=== PATIENT | female | born 1975 | race Caucasian/White ===

== ENCOUNTER 2021-01-16 18:08 | Inpatient (IN) | payer BC ==
[2021-01-16 19:11] LABS: Hemoglobin 14.7 g/dL (12.0-15.5); Mean Corpuscular HGB CONC 34.5 g/dL (32.0-36.0); Mean Corpuscular Hemoglobin 30.5 pg (27.0-33.0); Mean Corpuscular Volume 88.4 fl (81.6-98.3); Mean Platelet Volume 8.7 fl (7.4-10.4); Platelet Count 307 10x3/uL (150-450); RBC Distribution Width 13.3 % (11.5-14.5); Red Blood Cell (RBC) Count 4.82 10x6/uL (3.90-5.03); White Blood Cell (WBC) Count 23.1 10x3/uL (3.5-10.5)
[2021-01-16 19:21] LABS: ALT (SGPT) 25 U/L (8-55); AST (SGOT) 20 U/L (5-34); Albumin 4.1 g/dL (3.5-5.0); Alkaline Phosphatase 52 U/L (40-110); Anion Gap 18 mmol/L (10-20); BUN (Urea Nitrogen) 25 mg/dL (7.0-18.7); Bilirubin, Total 1.6 mg/dL (0.2-1.2); CK (CPK) 58 U/L (29-168); Calc. Creatinine Clearance 0 mL/min (70-130); Calcium 9.6 mg/dL (7.8-10.44); Carbon Dioxide 20 mmol/L (22-29); Chloride 102 mmol/L (98-107); Globulin 3.4 g/dL (2.4-3.5); Glucose 128 mg/dL (70-105); Lipase 12 U/L (8-78); Protein, Total 7.5 g/dL (6.0-8.3); Sodium 137 mmol/L (136-145)
[2021-01-16 19:42] LABS: Band 46 % (5-11); Lymphocytes 6 % (21-51); Metamyelocyte 3 % (0-0); Monocytes 12 % (0-10); Neutrophil 32 % (42-75); Reactive Lymphocytes 1 % (0-10)
[2021-01-16 19:45] LABS: Platelet Morphology Comment Appears Adequate; RBC Morphology Normal
[2021-01-16 19:50] LABS: Potassium 2.9 mmol/L (3.5-5.1)
[2021-01-16 20:03] LABS: Bilirubin Neg (Negative); Blood, Urine 50 (Negative); Clarity Clear (Clear); Glucose, Urine (Dipstick) Normal (Negative); Ketone, Urine 15 mg/dL (Negative); Leukocyte Negative (Negative); Nitrite Negative (Negative); Protein, Urine (Dipstick) 30 mg/dl (Neg-Trace); Specific Gravity, Urine 1.005 (1.002-1.036); Urobilinogen Normal mg/dL (Less than 2)
[2021-01-16 20:13] LABS: Bacteria/HPF Rare-Few HPF (None Seen); RBC/HPF 0-3 HPF (0-3); Squamous Epithelial 0-3 HPF (0-3); Transitional Epithelial 0-3 HPF (None Seen); WBC/HPF 0-3 HPF (0-3)
[2021-01-16] MEDS ORDERED: Potassium Chloride 20 MEQ TAB ONE (20:15)
[2021-01-16] MEDS ORDERED: metroNIDAZOLE 500 MG/100 ML BAG ONE (20:16)
[2021-01-16] MEDS ORDERED: HYDROcodone/Acetaminophen 5/325 mg Tablet PO PRN (21:57)
[2021-01-16] MEDS ORDERED: Ondansetron ODT 4 MG TAB PO PRN (21:57)
[2021-01-16] MEDS ORDERED: Acetaminophen 325 MG TAB PO PRN (21:57)
[2021-01-16] MEDS ORDERED: Ondansetron PF 4 MG/2 ML Vial IVP PRN (21:57)
[2021-01-16] MEDS ORDERED: Ondansetron PF 4 MG/2 ML Vial ONE (23:25)
[2021-01-17 03:49] VITALS: BMI 29.2
[2021-01-17] MEDS ORDERED: Potassium Chloride 20 MEQ TAB PO SCH (04:00)
[2021-01-17 04:19] LABS: Mean Corpuscular HGB CONC 34.8 g/dL (32.0-36.0); Mean Corpuscular Hemoglobin 30.8 pg (27.0-33.0); Mean Corpuscular Volume 88.7 fl (81.6-98.3); Mean Platelet Volume 8.8 fl (7.4-10.4); Platelet Count 252 10x3/uL (150-450); RBC Distribution Width 13.8 % (11.5-14.5); Red Blood Cell (RBC) Count 3.89 10x6/uL (3.90-5.03); White Blood Cell (WBC) Count 13.5 10x3/uL (3.5-10.5)
[2021-01-17] MEDS: NS 0.9% w/ 20 MEQ KCL 1,000 ML/1,000 ML BAG IV SCH ×3 (04:23→21:50)
[2021-01-17 04:26] LABS: ALT (SGPT) 19 U/L (8-55); AST (SGOT) 13 U/L (5-34); Albumin 3.2 g/dL (3.5-5.0); Alkaline Phosphatase 40 U/L (40-110); Anion Gap 14 mmol/L (10-20); BUN (Urea Nitrogen) 15 mg/dL (7.0-18.7); Bilirubin, Total 0.9 mg/dL (0.2-1.2); Calc. Creatinine Clearance 135 mL/min (70-130); Calcium 8.4 mg/dL (7.8-10.44); Carbon Dioxide 21 mmol/L (22-29); Chloride 109 mmol/L (98-107); Globulin 2.5 g/dL (2.4-3.5); Glucose 103 mg/dL (70-105); Magnesium 1.4 mg/dL (1.6-2.6); Potassium 3.1 mmol/L (3.5-5.1); Protein, Total 5.7 g/dL (6.0-8.3); Sodium 141 mmol/L (136-145)
[2021-01-17] MEDS: metroNIDAZOLE 500 MG in Premix Bag 1 BAG IVPB SCH ×3 (05:15→21:51)
[2021-01-17] MEDS: Vancomycin HCl 25 MG/ML Oral PO SCH ×5 (05:17→14:52)
[2021-01-17] MEDS ORDERED: Potassium Chloride 20 MEQ in Premix Bag 1 BAG IVPB SCH (05:30)
[2021-01-17] MEDS ORDERED: Magnesium 2 GM/50 ML 2 GM in Premix Bag 1 BAG IVPB SCH (05:30)
[2021-01-17 07:32] LABS: Band 37 % (5-11); Lymphocytes 4 % (21-51); Monocytes 7 % (0-10); Neutrophil 47 % (42-75); Reactive Lymphocytes 5 % (0-10)
[2021-01-17 07:34] LABS: Dohle Bodies SLIGHT; Platelet Morphology Comment Appears Adequate; Small Platelets MODERATE; Vacuoles MODERATE
[2021-01-17 07:35] LABS: MDiff Complete? YES; Manual Diff?? YES
[2021-01-17 07:36] LABS: RBC Morphology Normal
[2021-01-17] MEDS: Enoxaparin Sodium 40 MG/0.4 ML SYRINGE SC SCH (08:56)
[2021-01-17 14:33] LABS: Potassium 3.1 mmol/L (3.5-5.1)
[2021-01-17] MEDS: VANCOMYCIN HCL 125 MG PO SCH (17:14)
[2021-01-17] MEDS: [UNRECOGNIZED DRUG - OTHER] PO SCH (17:14)
[2021-01-17] MEDS: Potassium Chloride 20 MEQ TAB PO SCH (21:49)
[2021-01-18] MEDS: Potassium Chloride 20 MEQ TAB PO SCH ×4 (00:42→16:16)
[2021-01-18] MEDS: VANCOMYCIN HCL 125 MG PO SCH ×3 (00:42→14:06)
[2021-01-18] MEDS: [UNRECOGNIZED DRUG - OTHER] PO SCH ×3 (00:42→14:06)
[2021-01-18] MEDS ORDERED: Potassium Chloride 20 MEQ TAB PO SCH ×2 (02:30→09:00)
[2021-01-18 04:49] LABS: Anion Gap 11 mmol/L (10-20); BUN (Urea Nitrogen) 6 mg/dL (7.0-18.7); Calc. Creatinine Clearance 138 mL/min (70-130); Calcium 8.3 mg/dL (7.8-10.44); Carbon Dioxide 22 mmol/L (22-29); Chloride 111 mmol/L (98-107); Glucose 102 mg/dL (70-105); Magnesium 1.8 mg/dL (1.6-2.6); Potassium 3.3 mmol/L (3.5-5.1); Sodium 141 mmol/L (136-145)
[2021-01-18 04:55] LABS: #Eosinphils 0.2 10x3/uL (0.0-0.5); #Monocytes 0.9 10x3/uL (0.0-1.1); #Neutrophils 6.5 10x3/uL (1.5-8.4); %Basophils 0.3 % (0.0-2.0); %Eosinophils 2.5 % (0.0-6.0); %Lymphocytes 16.7 % (18.0-47.0); %Monocytes 9.3 % (0.0-10.0); %Neutrophils 70.7 % (40.0-75.0); Hemoglobin 11.5 g/dL (12.0-15.5); Mean Corpuscular HGB CONC 33.2 g/dL (32.0-36.0); Mean Corpuscular Hemoglobin 30.3 pg (27.0-33.0); Mean Corpuscular Volume 91.3 fl (81.6-98.3); Mean Platelet Volume 9.2 fl (7.4-10.4); Platelet Count 249 10x3/uL (150-450); RBC Distribution Width 14.1 % (11.5-14.5); Red Blood Cell (RBC) Count 3.79 10x6/uL (3.90-5.03); White Blood Cell (WBC) Count 9.2 10x3/uL (3.5-10.5)
[2021-01-18] MEDS: NS 0.9% w/ 20 MEQ KCL 1,000 ML/1,000 ML BAG IV SCH ×2 (05:08→12:36)
[2021-01-18] MEDS: metroNIDAZOLE 500 MG in Premix Bag 1 BAG IVPB SCH ×2 (05:45→14:06)
[2021-01-18] MEDS ORDERED: Baclofen 10 MG TAB PO SCH (09:00)
[2021-01-18] MEDS: Enoxaparin Sodium 40 MG/0.4 ML SYRINGE SC SCH (09:53)
[2021-01-18 13:15] VITALS: BP 115/77; TEMP 97.4
[2021-01-18 13:40] LABS: Potassium 3.4 mmol/L (3.5-5.1)
== END 2021-01-18 18:10 | disposition home or self-care (01) | DRG 872 ==
LOC: CSHERS 18:08 → CSHTELE 21:57 → UNDOADMIN 01-17 02:40 → CSHTELE 01-17 02:40 → UNDODISIN 01-18 18:10
PROVIDERS: ADMIT Student in an Organized Health Care Education/Training Program; ATTEND Physician Assistant Medical
DX: A41.9 Sepsis, unspecified organism (principal); A04.71 Enterocolitis due to Clostridium difficile, recurrent; K51.00 Ulcerative (chronic) pancolitis without complications; G80.9 Cerebral palsy, unspecified; Z99.3 Dependence on wheelchair; I10 Essential (primary) hypertension; F41.9 Anxiety disorder, unspecified; E87.6 Hypokalemia; E83.42 Hypomagnesemia; Z79.899 Other long term (current) drug therapy
CPT/HCPCS: 36415; 51701; 71045; 74177; 80048; 80053; 81003; 81015; 82550; 83605; 83690; 83735; 83880; 84484; 85025; 87040; 87045; 87046; 87086; 87324; 87328; 87329; 87427; 87449; 93005; 96365; 96366; 96367; 96375; J1650; J1956; J2405; J3370; J3475; J3480

== ENCOUNTER → 2021-08-28 | Day surgery (SDC) | payer BC | LOC: CSHULT 12:42 | PROVIDERS: ATTEND Student in an Organized Health Care Education/Training Program | PROC: 0H9T3ZX Drainage of Right Breast, Percutaneous Approach, Diagnostic (ICD-10-PCS; principal; 2021-08-28) | DX: N63.11 Unspecified lump in the right breast, upper outer quadrant (principal); G80.9 Cerebral palsy, unspecified; Z88.1 Allergy status to other antibiotic agents; Z88.2 Allergy status to sulfonamides; Z88.5 Allergy status to narcotic agent; Z88.8 Allergy status to other drugs, medicaments and biological substances; Z91.02 Food additives allergy status | CPT/HCPCS: 19083; 88305; 88341; 88342 ==

== ENCOUNTER 2023-10-28 13:51 | Outpatient (CLI) | payer BC | END 2023-10-28 13:52 | disposition home or self-care (01) | LOC: CSHMAMMO 13:51 | PROVIDERS: ATTEND Obstetrics & Gynecology | DX: Z12.31 Encounter for screening mammogram for malignant neoplasm of breast (principal) | CPT/HCPCS: 77063; 77067 ==